=== PATIENT | male | born 1940 | race Hispanic/Latino ===

== ENCOUNTER → 2020-07-17 | Outpatient (CLI) | payer OTHER ==
[~2020-07-17] MED LIST: ASPIR 8181 MG PO; COVID-19 VACC, MRNA(MODERNA)/PF 100 MCG/0.5 ML VIAL IM ONE; ENALAPRIL MALEA20 MG PO; HYDROCHLOROTHIA25 MG PO; METFORMIN HCL850 MG PO; SIMVASTATIN40 MG PO; SULFAMETHOXAZO1 EAC1
== END ==
LOC: VACCPMC 16:00
DX: Z23 Encounter for immunization (principal); Z20.822 Contact with and (suspected) exposure to COVID-19

== ENCOUNTER → 2020-08-16 | Outpatient (CLI) | payer OTHER | END | DRG 951 | LOC: VACCPMC 10:46 | DX: Z23 Encounter for immunization (principal); Z20.822 Contact with and (suspected) exposure to COVID-19 | CPT/HCPCS: 0012A; 91301 ==

== ENCOUNTER 2021-04-04 13:26 | Inpatient (IN) | payer MEDICARE ==
[~2021-04-04] VITALS: Ht 154.9 cm; Wt 73.9 kg
[~2021-04-04 13:26] MED LIST changes: -COVID-19 VACC, MRNA(MODERNA)/PF 100 MCG/0.5 ML VIAL IM ONE
[2021-04-04 13:58] LABS: BASOPHILS # (AUTO) 0.1 (0.0-0.1); BASOPHILS % 0.9 % (0.0-1.0); EOSINOPHILS # (AUTO) 0.3 (0.0-0.4); EOSINOPHILS % 2.4 % (0.0-6.0); HEMATOCRIT 44.7 % (38.2-49.6); HEMOGLOBIN 13.8 g/dL (14.0-18.0); LYMPHOCYTES % 26.6 % (18.0-39.1); MEAN CORPUSCULAR HEMOGLOBIN 27.8 pg (28-32); MEAN CORPUSCULAR HGB CONC 30.9 g/dL (31-35); MEAN CORPUSCULAR VOLUME 90.1 fL (81-99); MONOCYTES # (AUTO) 0.7 (0.2-0.8); MONOCYTES % 6.5 % (4.4-11.3); NEUTROPHILS # (AUTO) 6.9 (2.1-6.9); NEUTROPHILS % 62.5 % (38.7-80.0); PLATELET COUNT 273 x10e3/uL (140-360); RED BLOOD COUNT 4.96 x10e6/uL (4.3-5.7); RED CELL DISTRIBUTION WIDTH 18.3 % (11.7-14.4)
[2021-04-04] MEDS ORDERED: FENTANYL CITRATE/PF 100MCG/2 ML INJ IV PRN (14:00)
[2021-04-04] MEDS ORDERED: ASPIRIN 81 MG CHEW TAB PO ONE (14:00)
[2021-04-04 14:09] LABS: INR 0.9; PROTHROMBIN TIME 12.3 seconds (11.9-14.5)
[2021-04-04 14:10] LABS: PARTIAL THROMBOPLASTIN TIME 29.8 seconds (23.8-35.5)
[2021-04-04 14:19] LABS: ALBUMIN 4.1 g/dL (3.5-5.0); ALBUMIN/GLOBULIN RATIO 1.2 (0.8-2.0); ANION GAP 21.1 mmol/L (8-16); CALCIUM 9.1 mg/dL (8.4-10.2); CREATININE, SERUM 1.11 mg/dL (0.72-1.25); POTASSIUM 4.1 mmol/L (3.5-5.1)
[2021-04-04 14:26] LABS: CREATINE KINASE MB 1.2 ng/mL (0-5.0)
[2021-04-04 14:35] LABS: CLARITY,URINE SL CLOUDY (CLEAR); COLOR,URINE YELLOW (YELLOW); KETONES,URINE NEGATIVE (NEGATIVE); LEUKOCYTE ESTERASE ,URINE NEGATIVE (NEGATIVE); NITRITE,URINE NEGATIVE (NEGATIVE); PROTEIN,URINE DIPSTICK 1+ (NEGATIVE)
[2021-04-04 14:36] LABS: URINE UROBILINOGEN 0.2 mg/dL (0.2 - 1)
[2021-04-04 14:46] LABS: BACTERIA,URINE RARE /HPF
[2021-04-04] MEDS ORDERED: TETANUS/DIPHTHERIA TOX ADULT 0.5 ML SYR IM ONE (15:00)
[2021-04-04] MEDS ORDERED: SODIUM CHLORIDE 0.9% 1000ML 1,000 ML IV SCH (15:15)
[2021-04-04] MEDS: ONDANSETRON HCL INJ 2MG/ML 2ML 2 MG/ML VIAL IV PRN ×2 (15:56→21:38)
[2021-04-04] MEDS: MORPHINE SULFATE INJ 4 MG/ML INJ 1ML IV PRN ×2 (15:57→21:38)
[2021-04-04 16:13] VITALS: BP 166/99
[2021-04-04 16:20] VITALS: BP 166/99
[2021-04-04] MEDS ORDERED: AMLODIPINE BESYL5 MG PO (16:42)
[2021-04-04] MEDS ORDERED: FEROSUL325 MG PO (16:42)
[2021-04-04] MEDS ORDERED: BICALUTAMIDE50 MG PO (16:42)
[2021-04-04] MEDS ORDERED: METFORMIN HCL1000 MG PO (16:42)
[2021-04-04] MEDS ORDERED: DULOXETINE HCL20 MG PO (16:43)
[2021-04-04] MEDS ORDERED: SODIUM CHLORIDE 0.9% 250ML 250 ML IV ONE (17:30)
[2021-04-04] MEDS ORDERED: ACETAMINOPHEN 325 MG TAB PO PRN (17:45)
[2021-04-04] MEDS ORDERED: HYDRALAZINE HCL 20 MG/ML VIAL IV PRN (17:45)
[2021-04-04] MEDS ORDERED: DEXTROSE 50% SYRINGE 50 ML IV PRN (17:45)
[2021-04-04 19:25] VITALS: BP 173/75
[2021-04-04] MEDS ORDERED: INSULIN LISPRO 100 UNIT/1 ML 3ML VIAL SQ SCH (21:00)
[2021-04-04] MEDS: AMLODIPINE BESYLATE 5 MG TAB PO SCH (21:29)
[2021-04-04 22:37] VITALS: BP 173/75
[2021-04-04] MEDS ORDERED: METOPROLOL TARTRATE INJ 1 MG/ML VIAL IV PRN (22:45)
[2021-04-04] MEDS: DEXTROSE 5%/0.45% SOD CHL 1,000 ML IV SCH (22:57)
[2021-04-05] VITALS (8 sets, daily range): BP systolic 127–148; BP diastolic 69–87
[2021-04-05] MEDS: INSULIN LISPRO 100 UNIT/1 ML 3ML VIAL SQ SCH ×6 (02:19→23:09)
[2021-04-05 06:26] LABS: BASOPHILS # (AUTO) 0.1 (0.0-0.1); BASOPHILS % 0.7 % (0.0-1.0); EOSINOPHILS # (AUTO) 0.1 (0.0-0.4); EOSINOPHILS % 1.1 % (0.0-6.0); HEMATOCRIT 38.5 % (38.2-49.6); LYMPHOCYTES # (AUTO) 2.1 (1.0-3.2); LYMPHOCYTES % 16.9 % (18.0-39.1); MEAN CORPUSCULAR HEMOGLOBIN 27.6 pg (28-32); MEAN CORPUSCULAR HGB CONC 31.2 g/dL (31-35); MEAN CORPUSCULAR VOLUME 88.7 fL (81-99); MONOCYTES # (AUTO) 1.1 (0.2-0.8); MONOCYTES % 8.6 % (4.4-11.3); NEUTROPHILS # (AUTO) 9.1 (2.1-6.9); NEUTROPHILS % 71.9 % (38.7-80.0); PLATELET COUNT 223 x10e3/uL (140-360); RED BLOOD COUNT 4.34 x10e6/uL (4.3-5.7); RED CELL DISTRIBUTION WIDTH 17.9 % (11.7-14.4)
[2021-04-05 07:08] LABS: ANION GAP 13.9 mmol/L (8-16); CALCIUM 8.7 mg/dL (8.4-10.2); CREATININE, SERUM 0.8 mg/dL (0.72-1.25); POTASSIUM 3.9 mmol/L (3.5-5.1)
[2021-04-05] MEDS ORDERED: Cefazolin 2 GM in SODIUM CHLORIDE 0.9% 50ML 50 ML IV ONE (07:30)
[2021-04-05] MEDS: DEXTROSE 5%/0.45% SOD CHL 1,000 ML IV SCH ×2 (08:45→18:45)
[2021-04-05] MEDS ORDERED: SODIUM CHLORIDE 0.9% 50ML 100 ML ONE (11:48)
[2021-04-05] MEDS ORDERED: EPHEDRINE SULFATE INJ 50 MG/ML VIAL ONE (13:15)
[2021-04-05] MEDS ORDERED: DOCUSATE SODIUM 100 MG CAP PO PRN (13:30)
[2021-04-05] MEDS ORDERED: KETOROLAC TROMETHAMINE 30 MG/ML VIAL IV PRN (13:30)
[2021-04-05] MEDS ORDERED: DIPHENHYDRAMINE HCL INJ 50 MG/ML VIAL IV PRN (13:30)
[2021-04-05] MEDS ORDERED: ACETAMINOPHEN 650 MG SUPP PR PRN (13:30)
[2021-04-05] MEDS ORDERED: HYDROCODONE/APAP 5MG-325MG TAB PO PRN (13:30)
[2021-04-05] MEDS ORDERED: ONDANSETRON HCL INJ 2MG/ML 2ML 2 MG/ML VIAL IV PRN (13:30)
[2021-04-05] MEDS ORDERED: ACETAMINOPHEN 1000 MG/100 ML IV PRN (15:00)
[2021-04-05] MEDS: SODIUM CHLORIDE 0.9% 1000ML 1,000 ML IV SCH ×2 (15:19→23:30)
[2021-04-05] MEDS: HYDROCODONE/APAP 7.5MG-325MG 1 EA TAB PO PRN ×2 (16:25→21:19)
[2021-04-05] MEDS: ASPIRIN 325 MG TAB PO SCH (17:00)
[2021-04-05] MEDS: CELECOXIB 100 MG CAP PO SCH (17:25)
[2021-04-05] MEDS ORDERED: ZOLPIDEM TARTRATE 5 MG TAB PO PRN (21:00)
[2021-04-05] MEDS: AMLODIPINE BESYLATE 5 MG TAB PO SCH (21:19)
[2021-04-05] MEDS: Cefazolin 1 GM in SODIUM CHLORIDE 0.9% 50ML 50 ML IV SCH (21:19)
[2021-04-06] VITALS (8 sets, daily range): BP systolic 111–133; BP diastolic 61–74
[2021-04-06] MEDS: INSULIN LISPRO 100 UNIT/1 ML 3ML VIAL SQ SCH ×5 (02:00→20:28)
[2021-04-06] MEDS: DEXTROSE 5%/0.45% SOD CHL 1,000 ML IV SCH (04:24)
[2021-04-06] MEDS: Cefazolin 1 GM in SODIUM CHLORIDE 0.9% 50ML 50 ML IV SCH ×2 (04:24→11:58)
[2021-04-06 06:09] LABS: HEMATOCRIT 30.5 % (38.2-49.6); HEMOGLOBIN 9.3 g/dL (14.0-18.0)
[2021-04-06] MEDS: ASPIRIN 325 MG TAB PO SCH ×2 (09:28→17:13)
[2021-04-06] MEDS: CELECOXIB 100 MG CAP PO SCH ×2 (09:28→17:13)
[2021-04-06] MEDS ORDERED: DEXTROSE 50% SYRINGE 50 ML IV PRN (09:30)
[2021-04-06] MEDS: HYDROCODONE/APAP 7.5MG-325MG 1 EA TAB PO PRN (10:55)
[2021-04-06] MEDS: AMLODIPINE BESYLATE 5 MG TAB PO SCH (20:38)
[2021-04-07 00:08] VITALS: BP 150/73
[2021-04-07 05:08] VITALS: BP 133/73
[2021-04-07 06:34] LABS: HEMATOCRIT 27.6 % (38.2-49.6); HEMOGLOBIN 8.9 g/dL (14.0-18.0)
[2021-04-07 07:58] VITALS: BP 139/77
[2021-04-07 08:00] VITALS: BP 139/77
[2021-04-07] MEDS: INSULIN LISPRO 100 UNIT/1 ML 3ML VIAL SQ SCH ×2 (08:00→12:43)
[2021-04-07] MEDS: CELECOXIB 100 MG CAP PO SCH (08:17)
[2021-04-07] MEDS: HYDROCODONE/APAP 7.5MG-325MG 1 EA TAB PO PRN (08:17)
[2021-04-07] MEDS: ASPIRIN 325 MG TAB PO SCH (08:17)
[2021-04-07] MEDS ORDERED: IRON SUCROSE 100 MG in SODIUM CHLORIDE 0.9% 100 ML 100 ML IV SCH (10:30)
[2021-04-07 11:41] VITALS: BP 132/74
== END 2021-04-07 15:50 | DRG 481 ==
LOC: ER 13:47 → ERHOLD 15:13 → MED/SURG 15:58
PROVIDERS: ADMIT Internal Medicine; ATTEND Internal Medicine
PROC: 0QS706Z Reposition Left Upper Femur with Intramedullary Internal Fixation Device, Open Approach (ICD-10-PCS; principal; 2021-04-05 12:42)
DX: S72.002A Fracture of unspecified part of neck of left femur, initial encounter for closed fracture (principal); D62 Acute posthemorrhagic anemia; E11.9 Type 2 diabetes mellitus without complications; E78.5 Hyperlipidemia, unspecified; C61 Malignant neoplasm of prostate; Z20.822 Contact with and (suspected) exposure to COVID-19; F32.9 Major depressive disorder, single episode, unspecified; F41.9 Anxiety disorder, unspecified
CPT/HCPCS: 36415; 70450; 71045; 72125; 76000; 80048; 80053; 81001; 82550; 82553; 82948; 84484; 85014; 85018; 85025; 85610; 85730; 86850; 86900; 86920; 90714; 93005; 97139; 99284; C1713; J0690; J1756; J2270; J2405; J7030; U0002